=== PATIENT | female | born 1945 | race Caucasian/White ===

== ENCOUNTER → 2016-06-15 | Outpatient (CLI) | payer MEDICARE, OTHER ==
[~2016-06-15] MED LIST: ADVIL200 MG PO; ALLERGY RELIEF10 MG PO; ASPIRIN LO-DOSE81 MG PO; CALCIUM 600 +1 EAC6 PO; CELEXA20 MG PO; CLARITIN10 MG PO; COREG6.25 MG PO; CPAP INH; FISH OIL 1,2001 EACH PO; GLUCOPHAGE500 MG PO; HUMALOG100 UNIT/3 SUB-Q; HYDROCHLOROTH12.5 MG PO; LANTUS100 UNIT/1 SUB-Q; LIPITOR40 MG PO; LOSARTAN-HCTZ1 EACH PO; NORCO 5-325 TA1 EACH PO; ULTRAM50 MG PO
== END | disposition disaster alternative care site (69) ==
LOC: GOPD 05-27
PROC: 3E0R33Z Introduction of Anti-inflammatory into Spinal Canal, Percutaneous Approach (ICD-10-PCS; principal; 2016-06-15)
PROC: 3E0R3BZ Introduction of Anesthetic Agent into Spinal Canal, Percutaneous Approach (ICD-10-PCS; 2016-06-15)
DX: M48.06 Spinal stenosis, lumbar region (principal)
CPT/HCPCS: J1040